=== PATIENT | male | born 1965 | race Caucasian/White ===

== ENCOUNTER 2023-10-02 07:35 | Outpatient (CLI) | payer BC ==
[2023-10-02] MEDS ORDERED: Iopamidol 370 76% 100 ML VIAL ONE (14:13)
== END 2023-10-02 07:36 | disposition home or self-care (01) ==
LOC: BICCT 07:35
PROVIDERS: ATTEND Specialist
DX: K43.5 Parastomal hernia without obstruction or gangrene (principal); M47.816 Spondylosis without myelopathy or radiculopathy, lumbar region; Z90.49 Acquired absence of other specified parts of digestive tract; Z93.3 Colostomy status
CPT/HCPCS: 74177; Q9967

== ENCOUNTER 2023-10-05 12:52 | Outpatient (CLI) | payer BC ==
[2023-10-05 14:15] LABS: #Basophils 0.1 10x3/uL (0.0-0.2); #Eosinphils 0.4 10x3/uL (0.0-0.5); #Monocytes 0.6 10x3/uL (0.0-1.1); %Basophils 1.2 % (0.0-2.0); %Lymphocytes 30.3 % (18.0-47.0); %Monocytes 8.3 % (0.0-10.0); %Neutrophils 54.9 % (40.0-75.0); Hematocrit 44.2 % (38.8-50.0); Hemoglobin 15.3 g/dL (13.5-17.5); Mean Corpuscular HGB CONC 34.6 g/dL (32.0-36.0); Mean Corpuscular Hemoglobin 30.9 pg (27.0-33.0); Mean Corpuscular Volume 89.3 fl (81.2-95.1); Mean Platelet Volume 9.6 fl (7.4-10.4); Platelet Count 251 10x3/uL (150-450); RBC Distribution Width 12.9 % (11.5-14.5); Red Blood Cell (RBC) Count 4.95 10x6/uL (4.32-5.72); White Blood Cell (WBC) Count 7.3 10x3/uL (3.5-10.5)
[2023-10-05 14:31] LABS: Anion Gap 14 mmol/L (10-20); BUN (Urea Nitrogen) 15 mg/dL (8.4-25.7); Calc. Creatinine Clearance 0 mL/min (70-130); Calcium 9.1 mg/dL (7.8-10.44); Carbon Dioxide 25 mmol/L (22-29); Chloride 105 mmol/L (98-107); Estimated GFR 101; Glucose 99 mg/dL (70-105); Potassium 4.2 mmol/L (3.5-5.1); Sodium 140 mmol/L (136-145)
[2023-10-05 21:59] LABS: Hemoglobin A1c 5.8 % (4.0-6.0)
== END 2023-10-05 12:53 | disposition home or self-care (01) ==
LOC: LABBT 12:52
PROVIDERS: ATTEND Specialist
DX: Z01.818 Encounter for other preprocedural examination (principal); K43.5 Parastomal hernia without obstruction or gangrene; Z90.49 Acquired absence of other specified parts of digestive tract
CPT/HCPCS: 71046; 80048; 83036; 85025; 93005; 93010

== ENCOUNTER 2023-10-05 13:00 | Inpatient (IN) | payer BC ==
[2023-10-05 13:36] VITALS: BMI 27.8
[2023-10-10] MEDS ORDERED: Ketorolac Tromethamine 30 MG/ML VIAL ONE (07:40)
[2023-10-10] MEDS ORDERED: cefOXitin 2 GM VIAL ONE ×2 (07:41→11:01)
[2023-10-10] MEDS ORDERED: Acetaminophen 500 MG TAB ONE (07:41)
[2023-10-10] MEDS ORDERED: Sodium Chloride 0.9% 100 ML ONE (07:41)
[2023-10-10] MEDS ORDERED: fentaNYL 50 mcg/mL 1 mL Vial ONE (07:50)
[2023-10-10] MEDS ORDERED: Midazolam HCl 2 mg/2 ml Vial ONE ×2 (07:50→08:00)
[2023-10-10] MEDS ORDERED: Bupivacaine 0.25% HCL 30 ML VIAL ONE (07:51)
[2023-10-10] MEDS ORDERED: Rocuronium Bromide 10 MG/ML (10ML VIAL) ONE ×2 (08:00→09:25)
[2023-10-10] MEDS ORDERED: Lidocaine 2% PF 5 ML VIAL ONE (08:00)
[2023-10-10] MEDS ORDERED: fentaNYL PF 100 MCG/2 ML SYRINGE ONE ×2 (08:00→09:58)
[2023-10-10] MEDS ORDERED: PROPOFOL 20 ML ONE (08:00)
[2023-10-10] MEDS ORDERED: Ondansetron HCl/PF 4 MG/2 ML Vial IVP PRN (08:15)
[2023-10-10] MEDS ORDERED: Promethazine HCl 25 MG/ML VIAL IM PRN ×5 (08:15→14:24)
[2023-10-10] MEDS ORDERED: HYDROmorphone 2 MG/ML VIAL SLOW IVP PRN (08:15)
[2023-10-10] MEDS ORDERED: Lidocaine 1% (PF) 30 ML VIAL ONE (08:47)
[2023-10-10] MEDS ORDERED: EPINEPHrine 1 MG/ML VIAL ONE (08:47)
[2023-10-10] MEDS ORDERED: PHENYLEPHRINE-NS 100 MCG/ML 10 ML SYRINGE ONE (09:25)
[2023-10-10] MEDS ORDERED: ePHEDrine Sulfate 50 MG/10 ML VIAL ONE ×4 (09:25→13:48)
[2023-10-10] MEDS ORDERED: PROPOFOL 200 MG/20 ML VIAL ONE (09:25)
[2023-10-10] MEDS ORDERED: Ondansetron PF 4 MG/2 ML Vial ONE ×2 (09:25→12:57)
[2023-10-10] MEDS ORDERED: Lidocaine 1% PF 5 ML VIAL ONE (09:25)
[2023-10-10] MEDS ORDERED: Ketamine In 0.9 % NaCl 50 MG/5 ML SYRINGE ONE (10:27)
[2023-10-10] MEDS ORDERED: ceFOXitin 1 GM VIAL ONE (11:01)
[2023-10-10] MEDS ORDERED: diphenhydrAMINE 50 MG/ML VIAL IM PRN ×3 (14:06→14:24)
[2023-10-10] MEDS ORDERED: diphenhydrAMINE 25 MG CAP PO PRN ×3 (14:06→14:24)
[2023-10-10] MEDS ORDERED: Naloxone HCl 0.4 mg/ml Vial IV PRN ×3 (14:06→14:24)
[2023-10-10] MEDS ORDERED: diphenhydrAMINE 50 MG/ML VIAL IVP PRN ×3 (14:06→14:24)
[2023-10-10] MEDS ORDERED: FENTANYL 500 MCG/10 ML VIAL 2,000 MCG in Sodium Chloride 0.9% 60 ML IV PRN ×2 (14:06→14:19)
[2023-10-10] MEDS ORDERED: Ondansetron PF 4 MG/2 ML Vial IVP PRN ×3 (14:06→14:19)
[2023-10-10] MEDS ORDERED: Communication Order-Pharmacy FS SCH ×3 (14:15→14:30)
[2023-10-10] MEDS ORDERED: Fioricet 325/50/40 mg Tablet PO PRN (14:15)
[2023-10-10] MEDS ORDERED: hydrALAZINE 20 MG/ML VIAL SLOW IVP PRN (14:15)
[2023-10-10] MEDS ORDERED: Ipratropium/Albuterol 3 ML NEB NEB PRN (14:15)
[2023-10-10] MEDS: Ketorolac Tromethamine 30 MG/ML VIAL IVP SCH (18:42)
[2023-10-10] MEDS: Ondansetron PF 4 MG/2 ML Vial IVP PRN (18:47)
[2023-10-11] MEDS: Ketorolac Tromethamine 30 MG/ML VIAL IVP SCH ×3 (00:36→11:55)
[2023-10-11] MEDS: cefOXitin 2 GM in Sodium Chloride 0.9% 100 ML IVPB SCH ×2 (00:37→05:50)
[2023-10-11] MEDS: Famotidine/PF 20 mg/2ml Vial SLOW IVP SCH ×3 (00:37→20:07)
[2023-10-11] MEDS: Sodium Chloride 0.9% 1,000 ML IV SCH ×4 (00:41→17:30)
[2023-10-11] MEDS: Ondansetron PF 4 MG/2 ML Vial IVP PRN ×4 (01:01→20:07)
[2023-10-11] MEDS: Famotidine 20 MG TAB PO SCH ×3 (02:33→20:07)
[2023-10-11 05:26] LABS: #Eosinphils 0.1 thou/uL (0.0-0.7); #Monocytes 0.9 thou/uL (0.11-0.59); #Neutrophils 9.5 thou/uL (1.40-6.50); %Basophils 0.2 % (0.0-1.0); %Eosinophils 0.5 % (0.0-10.0); %Lymphocytes 12.6 % (21.0-51.0); %Monocytes 7.1 % (0.0-10.0); %Neutrophils 79.3 % (42.0-75.0); Hematocrit 35.5 % (42.0-52.0); Hemoglobin 12.1 g/dL (14.0-18.0); Mean Corpuscular HGB CONC 34.1 g/dL (32.0-36.0); Mean Corpuscular Hemoglobin 31.2 pg (27.0-31.0); Mean Corpuscular Volume 91.5 fl (78.0-98.0); Mean Platelet Volume 9.7 fL (7.4-10.4); Platelet Count 198 10x3/uL (130-400); RBC Distribution Width 13.2 % (11.5-14.5); Red Blood Cell (RBC) Count 3.88 mill/uL (4.70-6.10)
[2023-10-11 08:29] LABS: Anion Gap 10 mmol/L (10-20); BUN (Urea Nitrogen) 11 mg/dL (8.4-25.7); Calc. Creatinine Clearance 137 mL/min (70-130); Calcium 7.7 mg/dL (7.8-10.44); Carbon Dioxide 21 mmol/L (22-29); Chloride 108 mmol/L (98-107); Estimated GFR 104; Glucose 142 mg/dL (70-105); Potassium 4.2 mmol/L (3.5-5.1); Sodium 135 mmol/L (136-145)
[2023-10-11] MEDS: Tamsulosin HCl 0.4 MG CAP PO SCH (09:45)
[2023-10-11] MEDS ORDERED: Acetaminophen 325 MG TAB PO PRN (18:28)
[2023-10-12] MEDS: FENTANYL 500 MCG/10 ML VIAL 2,000 MCG in Sodium Chloride 0.9% 60 ML IV PRN ×2 (00:48→20:40)
[2023-10-12] MEDS: Sodium Chloride 0.9% 1,000 ML IV SCH ×3 (01:33→19:30)
[2023-10-12] MEDS: Ondansetron PF 4 MG/2 ML Vial IVP PRN ×3 (01:33→20:48)
[2023-10-12] MEDS: Tamsulosin HCl 0.4 MG CAP PO SCH (09:52)
[2023-10-12] MEDS: Famotidine 20 MG TAB PO SCH ×2 (09:52→20:42)
[2023-10-12] MEDS: Famotidine/PF 20 mg/2ml Vial SLOW IVP SCH ×2 (09:53→20:42)
[2023-10-12] MEDS: Fioricet 325/50/40 mg Tablet PO PRN (11:24)
[2023-10-13] MEDS: Sodium Chloride 0.9% 1,000 ML IV SCH ×3 (02:00→20:21)
[2023-10-13 06:30] LABS: #Basophils 0.1 thou/uL (0.0-0.2); #Eosinphils 0.3 thou/uL (0.0-0.7); #Monocytes 0.9 thou/uL (0.11-0.59); #Neutrophils 6.2 thou/uL (1.40-6.50); %Basophils 0.6 % (0.0-1.0); %Eosinophils 3.1 % (0.0-10.0); %Lymphocytes 18.1 % (21.0-51.0); %Monocytes 9.9 % (0.0-10.0); %Neutrophils 68.1 % (42.0-75.0); Hematocrit 35.9 % (42.0-52.0); Hemoglobin 12.1 g/dL (14.0-18.0); Mean Corpuscular HGB CONC 33.7 g/dL (32.0-36.0); Mean Corpuscular Hemoglobin 30.7 pg (27.0-31.0); Mean Corpuscular Volume 91.1 fl (78.0-98.0); Mean Platelet Volume 9.9 fL (7.4-10.4); Platelet Count 214 10x3/uL (130-400); RBC Distribution Width 13.2 % (11.5-14.5); Red Blood Cell (RBC) Count 3.94 mill/uL (4.70-6.10); White Blood Cell (WBC) Count 9.1 10x3/uL (4.8-10.8)
[2023-10-13 07:00] LABS: Anion Gap 10 mmol/L (10-20); BUN (Urea Nitrogen) 4 mg/dL (8.4-25.7); Calc. Creatinine Clearance 151 mL/min (70-130); Calcium 8.4 mg/dL (7.8-10.44); Carbon Dioxide 25 mmol/L (22-29); Chloride 105 mmol/L (98-107); Estimated GFR 107; Glucose 95 mg/dL (70-105); Potassium 3.4 mmol/L (3.5-5.1); Sodium 137 mmol/L (136-145)
[2023-10-13] MEDS: Tamsulosin HCl 0.4 MG CAP PO SCH (08:15)
[2023-10-13] MEDS: Famotidine 20 MG TAB PO SCH ×2 (08:16→20:42)
[2023-10-13] MEDS: Famotidine/PF 20 mg/2ml Vial SLOW IVP SCH ×2 (08:16→20:30)
[2023-10-13] MEDS: Ondansetron PF 4 MG/2 ML Vial IVP PRN (08:16)
[2023-10-13] MEDS: Fioricet 325/50/40 mg Tablet PO PRN (08:29)
[2023-10-13] MEDS ORDERED: FLU VACC QS2023-24(6MOS UP)/PF 60 MCG/0.5 ML SYRINGE IM ONE (09:00)
[2023-10-13] MEDS ORDERED: FENTANYL 500 MCG/10 ML VIAL 2,000 MCG in Sodium Chloride 0.9% 60 ML IV PRN (11:31)
[2023-10-14] MEDS ORDERED: Morphine 4 MG/ML VIAL SLOW IVP PRN (05:22)
[2023-10-14] MEDS ORDERED: traMADol HCl 50 MG TAB PO PRN (05:22)
[2023-10-14] MEDS: Sodium Chloride 0.9% 1,000 ML IV SCH (07:14)
[2023-10-14] MEDS: traMADol HCl 50 MG TAB PO PRN ×2 (08:06→13:36)
[2023-10-14] MEDS: Tamsulosin HCl 0.4 MG CAP PO SCH (08:06)
[2023-10-14] MEDS: Famotidine 20 MG TAB PO SCH ×2 (08:06→20:25)
[2023-10-14] MEDS: Famotidine/PF 20 mg/2ml Vial SLOW IVP SCH ×2 (08:06→20:26)
[2023-10-14] MEDS: Ondansetron PF 4 MG/2 ML Vial IVP PRN (09:45)
[2023-10-14] MEDS ORDERED: HYDROcodone/Acetaminophen 7.5/325 mg Tablet PO PRN (14:56)
[2023-10-14] MEDS: Fioricet 325/50/40 mg Tablet PO PRN (15:15)
[2023-10-14] MEDS: HYDROcodone/Acetaminophen 7.5/325 mg Tablet PO PRN (21:07)
[2023-10-15] MEDS: HYDROcodone/Acetaminophen 7.5/325 mg Tablet PO PRN ×2 (05:24→11:13)
[2023-10-15 08:29] VITALS: BP 127/75; TEMP 97.4
[2023-10-15] MEDS: Famotidine 20 MG TAB PO SCH (09:24)
[2023-10-15] MEDS: Tamsulosin HCl 0.4 MG CAP PO SCH (09:24)
[2023-10-15] MEDS: Famotidine/PF 20 mg/2ml Vial SLOW IVP SCH (09:25)
[2023-10-15] MEDS ORDERED: FLU VACC QS2023-24(6MOS UP)/PF 60 MCG/0.5 ML SYRINGE IM ONE (10:22)
== END 2023-10-15 11:40 | disposition home or self-care (01) | DRG 330 ==
LOC: SURG A 10-10 07:01 → SURG B 10-10 15:50
PROVIDERS: ADMIT Specialist; ATTEND Specialist
PROC: 0DBN0ZZ Excision of Sigmoid Colon, Open Approach (ICD-10-PCS; principal; 2023-10-10)
PROC: 0WQF0ZZ Repair Abdominal Wall, Open Approach (ICD-10-PCS; 2023-10-10)
PROC: 0D1B0Z4 Bypass Ileum to Cutaneous, Open Approach (ICD-10-PCS; 2023-10-10)
PROC: 0DBP0ZZ Excision of Rectum, Open Approach (ICD-10-PCS; 2023-10-10)
DX: Z43.3 Encounter for attention to colostomy (principal); K56.7 Ileus, unspecified; K43.5 Parastomal hernia without obstruction or gangrene; K62.4 Stenosis of anus and rectum; Z90.49 Acquired absence of other specified parts of digestive tract; Z98.890 Other specified postprocedural states
CPT/HCPCS: 36415; 36416; 80048; 85025; 88307; 90471; 90686; 97139; A4314; A4649; C1713; G0008; J0171; J0694; J1650; J1885; J2001; J2250; J2270; J2405; J2704; J3010; J3490; J7050; S0020; S0028

== ENCOUNTER 2023-11-24 07:59 | Outpatient (CLI) | payer BC ==
[2023-11-24] MEDS ORDERED: MD-Gastroview 120 ML BOT ONE (08:24)
== END 2023-11-24 08:00 | disposition home or self-care (01) ==
LOC: RAD 07:59
PROVIDERS: ATTEND Specialist
DX: Z09 Encounter for follow-up examination after completed treatment for conditions other than malignant neoplasm (principal); K63.89 Other specified diseases of intestine; Z98.890 Other specified postprocedural states
CPT/HCPCS: 74280; Q9963

== ENCOUNTER 2023-11-30 07:18 | Inpatient (IN) | payer BC ==
[2023-11-29 13:41] VITALS: BMI 25.7
[2023-11-30] MEDS ORDERED: Acetaminophen 500 MG TAB ONE (08:26)
[2023-11-30] MEDS ORDERED: Ketorolac Tromethamine 30 MG (1 mL) VIAL ONE (08:26)
[2023-11-30] MEDS ORDERED: EPINEPHrine 1 MG/ML VIAL ONE (08:37)
[2023-11-30] MEDS ORDERED: Lidocaine 1% (PF) 30 ML VIAL ONE (08:37)
[2023-11-30] MEDS ORDERED: Bupivacaine 0.25% HCL 30 ML VIAL ONE (08:37)
[2023-11-30] MEDS ORDERED: PROPOFOL 20 ML ONE (08:38)
[2023-11-30] MEDS ORDERED: fentaNYL PF 100 MCG/2 ML SYRINGE ONE (08:38)
[2023-11-30] MEDS ORDERED: Rocuronium Bromide 10 MG/ML (10ML VIAL) ONE (08:39)
[2023-11-30] MEDS ORDERED: Ondansetron PF 4 MG/2 ML Vial ONE (08:39)
[2023-11-30] MEDS ORDERED: Lidocaine 1% PF 5 ML VIAL ONE (08:39)
[2023-11-30 08:46] LABS: #Basophils 0.1 thou/uL (0.0-0.2); #Eosinphils 0.4 thou/uL (0.0-0.7); #Monocytes 0.8 thou/uL (0.11-0.59); #Neutrophils 6.1 thou/uL (1.40-6.50); %Basophils 1.1 % (0.0-1.0); %Lymphocytes 26.8 % (21.0-51.0); %Monocytes 7.9 % (0.0-10.0); %Neutrophils 59.7 % (42.0-75.0); Hematocrit 41.2 % (42.0-52.0); Mean Corpuscular Hemoglobin 30.3 pg (27.0-31.0); Mean Corpuscular Volume 89.2 fl (78.0-98.0); Platelet Count 305 10x3/uL (130-400); RBC Distribution Width 13.5 % (11.5-14.5); Red Blood Cell (RBC) Count 4.62 mill/uL (4.70-6.10); White Blood Cell (WBC) Count 10.2 10x3/uL (4.8-10.8)
[2023-11-30 08:57] LABS: Hemoglobin A1c 5.4 % (4.0-6.0)
[2023-11-30] MEDS ORDERED: Sodium Chloride 0.9% 100 ML ONE (09:09)
[2023-11-30] MEDS ORDERED: cefOXitin 2 GM VIAL ONE (09:09)
[2023-11-30 09:11] LABS: Anion Gap 12 mmol/L (10-20); BUN (Urea Nitrogen) 13 mg/dL (8.4-25.7); Calc. Creatinine Clearance 118 mL/min (70-130); Calcium 9.1 mg/dL (7.8-10.44); Carbon Dioxide 23 mmol/L (22-29); Chloride 106 mmol/L (98-107); Estimated GFR 102; Glucose 86 mg/dL (70-105); Potassium 4.4 mmol/L (3.5-5.1); Sodium 137 mmol/L (136-145)
[2023-11-30] MEDS ORDERED: ePHEDrine Sulfate 50 MG/10 ML VIAL ONE (09:53)
[2023-11-30] MEDS ORDERED: SUGAMMADEX SODIUM 200 MG/2 ML VIAL ONE (10:31)
[2023-11-30] MEDS ORDERED: Ondansetron HCl/PF 4 MG/2 ML Vial IVP PRN (10:59)
[2023-11-30] MEDS ORDERED: Promethazine HCl 25 MG/ML VIAL IM PRN ×2 (10:59→11:48)
[2023-11-30] MEDS ORDERED: Morphine 2 MG/ML VIAL SLOW IVP PRN (11:48)
[2023-11-30] MEDS ORDERED: hydrALAZINE 20 MG/ML VIAL SLOW IVP PRN (11:48)
[2023-11-30] MEDS ORDERED: Ipratropium/Albuterol 3 ML NEB NEB PRN (11:48)
[2023-11-30] MEDS ORDERED: Bupivacaine PF 0.5% 30 ML VIAL ONE (12:22)
[2023-11-30] MEDS: Morphine 4 MG/ML VIAL SLOW IVP PRN (13:45)
[2023-11-30] MEDS: D5 1/2 NS w/20 mEq KCL 1,000 ML IV SCH (13:45)
[2023-11-30] MEDS: Ketorolac Tromethamine 30 MG (1 mL) VIAL IVP SCH (15:08)
[2023-11-30] MEDS: Ondansetron PF 4 MG/2 ML Vial IVP PRN (17:41)
[2023-11-30] MEDS: Famotidine 20 MG TAB PO SCH (19:55)
[2023-11-30] MEDS: Famotidine/PF 20 mg/2ml Vial SLOW IVP SCH (19:58)
[2023-12-01 04:52] LABS: #Basophils 0.1 thou/uL (0.0-0.2); #Eosinphils 0.2 thou/uL (0.0-0.7); %Basophils 0.6 % (0.0-1.0); %Eosinophils 1.9 % (0.0-10.0); %Lymphocytes 18.5 % (21.0-51.0); %Monocytes 9.6 % (0.0-10.0); Hematocrit 33.1 % (42.0-52.0); Hemoglobin 11.1 g/dL (14.0-18.0); Mean Corpuscular HGB CONC 33.5 g/dL (32.0-36.0); Mean Corpuscular Hemoglobin 30.7 pg (27.0-31.0); Mean Corpuscular Volume 91.7 fl (78.0-98.0); Mean Platelet Volume 8.9 fL (7.4-10.4); Platelet Count 211 10x3/uL (130-400); RBC Distribution Width 13.6 % (11.5-14.5); Red Blood Cell (RBC) Count 3.61 mill/uL (4.70-6.10); White Blood Cell (WBC) Count 10.1 10x3/uL (4.8-10.8)
[2023-12-01 05:16] LABS: Anion Gap 10 mmol/L (10-20); BUN (Urea Nitrogen) 9 mg/dL (8.4-25.7); Calc. Creatinine Clearance 132 mL/min (70-130); Calcium 7.8 mg/dL (7.8-10.44); Carbon Dioxide 25 mmol/L (22-29); Chloride 102 mmol/L (98-107); Estimated GFR 105; Glucose 125 mg/dL (70-105); Potassium 4.1 mmol/L (3.5-5.1); Sodium 133 mmol/L (136-145)
[2023-12-01] MEDS: Enoxaparin 40 MG (0.4 mL) SYRINGE SC SCH (08:33)
[2023-12-01] MEDS: Tamsulosin HCl 0.4 MG CAP PO SCH (08:33)
[2023-12-01] MEDS: D5 1/2 NS w/20 mEq KCL 1,000 ML IV SCH (10:06)
[2023-12-01] MEDS ORDERED: HYDROcodone/Acetaminophen 7.5/325 mg Tablet PO PRN (10:59)
[2023-12-02] MEDS: HYDROcodone/Acetaminophen 7.5/325 mg Tablet PO PRN (08:32)
[2023-12-02 12:46] VITALS: BP 109/66; TEMP 98.3
== END 2023-12-02 16:00 | disposition home or self-care (01) | DRG 331 ==
LOC: SDC 07:18 → SURG B 11:07
PROVIDERS: ADMIT Specialist; ATTEND Specialist
PROC: 0DBB0ZZ Excision of Ileum, Open Approach (ICD-10-PCS; principal; 2023-11-30)
DX: Z43.2 Encounter for attention to ileostomy (principal); Z90.49 Acquired absence of other specified parts of digestive tract; Z98.890 Other specified postprocedural states
CPT/HCPCS: 36415; 80048; 83036; 85025; 88304; A4314; A4649; J0171; J0665; J0694; J1650; J1885; J2001; J2270; J2405; J2704; J3480; J3490; S0028

== ENCOUNTER 2023-12-03 13:35 | Observation (INO) | payer BC ==
[~2023-12-03 13:35] MED LIST: Iopamidol-370 76% 500 ML MDV (1 ML CHARGE) ONE
[2023-12-03] MEDS ORDERED: Ketorolac Tromethamine 30 MG (1 mL) VIAL ONE (14:21)
[2023-12-03] MEDS ORDERED: Ondansetron PF 4 MG/2 ML Vial ONE (14:22)
[2023-12-03 14:23] LABS: #Basophils 0.1 thou/uL (0.0-0.2); #Eosinphils 0.2 thou/uL (0.0-0.7); #Monocytes 0.9 thou/uL (0.11-0.59); #Neutrophils 4.9 thou/uL (1.40-6.50); %Basophils 0.6 % (0.0-1.0); %Eosinophils 2.3 % (0.0-10.0); %Lymphocytes 24.1 % (21.0-51.0); %Monocytes 10.9 % (0.0-10.0); %Neutrophils 61.8 % (42.0-75.0); Hematocrit 33.8 % (42.0-52.0); Hemoglobin 11.6 g/dL (14.0-18.0); Mean Corpuscular HGB CONC 34.3 g/dL (32.0-36.0); Mean Corpuscular Hemoglobin 30.8 pg (27.0-31.0); Mean Corpuscular Volume 89.7 fl (78.0-98.0); Platelet Count 238 10x3/uL (130-400); RBC Distribution Width 13.4 % (11.5-14.5); Red Blood Cell (RBC) Count 3.77 mill/uL (4.70-6.10); White Blood Cell (WBC) Count 7.9 10x3/uL (4.8-10.8)
[2023-12-03] MEDS ORDERED: Morphine 4 MG/ML VIAL ONE (14:36)
[2023-12-03 14:45] LABS: ALT (SGPT) 67 U/L (8-55); AST (SGOT) 41 U/L (5-34); Albumin 3.8 g/dL (3.5-5.0); Alkaline Phosphatase 172 U/L (40-110); Anion Gap 12 mmol/L (10-20); BUN (Urea Nitrogen) 8 mg/dL (8.4-25.7); Bilirubin, Total 0.5 mg/dL (0.2-1.2); Calc. Creatinine Clearance 0 mL/min (70-130); Calcium 9.1 mg/dL (7.8-10.44); Carbon Dioxide 25 mmol/L (22-29); Chloride 101 mmol/L (98-107); Estimated GFR 104; Glucose 100 mg/dL (70-105); Lipase Less than 4 U/L (8-78); Potassium 3.7 mmol/L (3.5-5.1); Protein, Total 6.8 g/dL (6.0-8.3); Sodium 134 mmol/L (136-145)
[2023-12-03 16:06] LABS: Bacteria/HPF None Seen HPF (None Seen); Bilirubin Negative (Negative); Blood, Urine Negative (Negative); CAUTI Indications for Culture Pelvic or flank pain; Clarity Clear (Clear); Glucose, Urine (Dipstick) Normal (Negative); Ketone, Urine Negative (Negative); Leukocyte Negative Leu/uL (Negative); Nitrite Negative (Negative); Protein, Urine (Dipstick) Negative (Neg-Trace); RBC/HPF None Seen HPF (0-3); Specific Gravity, Urine 1.017 (1.002-1.036); Squamous Epithelial None Seen HPF (0-3); Urobilinogen Normal mg/dL (Less than 2); WBC/HPF None Seen HPF (0-3)
[2023-12-03 16:10] LABS: Urine Culture Reflex No No
[2023-12-03] MEDS ORDERED: Ondansetron ODT 4 MG TAB SL PRN (19:15)
[2023-12-03] MEDS ORDERED: Ondansetron PF 4 MG/2 ML Vial IVP PRN (19:15)
[2023-12-03] MEDS: HYDROcodone/Acetaminophen 5/325 mg Tablet PO PRN (20:33)
[2023-12-03] MEDS: Loperamide HCl 2 MG CAP PO PRN (20:33)
[2023-12-03] MEDS: Sodium Chloride 0.9% 1,000 ML IV SCH (20:34)
[2023-12-04 01:52] VITALS: BMI 40.6
[2023-12-04 02:28] LABS: Campy jejuni + coli by PCR Negative (Negative); STEC Shiga Toxin 1+2 Negative (Negative); Salmonella spp. by PCR Negative (Negative); Shigella spp + EIEC by PCR Negative (Negative)
[2023-12-04] MEDS: Loperamide HCl 2 MG CAP PO SCH (09:40)
[2023-12-04] MEDS: HYDROcodone/Acetaminophen 7.5/325 mg Tablet PO PRN (09:40)
[2023-12-04] MEDS: D5 0.9% NS w/ 20 mEq KCl 1,000 ML IV SCH (09:40)
[2023-12-04] MEDS ORDERED: Fioricet 325/50/40 mg Tablet PO PRN (10:07)
[2023-12-04 13:48] VITALS: BP 120/70; TEMP 97.9
[2023-12-05] MEDS ORDERED: Tamsulosin HCl 0.4 MG CAP PO SCH (09:00)
== END 2023-12-04 16:19 | disposition home or self-care (01) ==
LOC: ERS 13:35 → ERHOLD 16:45 → SURG A 18:52
PROVIDERS: ADMIT Specialist; ATTEND Specialist
DX: R19.7 Diarrhea, unspecified (principal)
CPT/HCPCS: 36415; 74177; 80053; 81001; 83690; 85025; 87324; 87449; 87505; 96374; 96375; G0378; J1885; J2270; J2405; J3480; J7050; Q9967

== ENCOUNTER 2023-12-06 16:15 | Inpatient (IN) | payer BC ==
[2023-12-06 17:56] LABS: #Eosinphils 0.2 thou/uL (0.0-0.7); #Monocytes 0.9 thou/uL (0.11-0.59); #Neutrophils 2.4 thou/uL (1.40-6.50); %Basophils 0.7 % (0.0-1.0); %Eosinophils 3.2 % (0.0-10.0); %Lymphocytes 35.3 % (21.0-51.0); %Monocytes 16.7 % (0.0-10.0); %Neutrophils 43.7 % (42.0-75.0); Hematocrit 33.8 % (42.0-52.0); Hemoglobin 11.3 g/dL (14.0-18.0); Mean Corpuscular HGB CONC 33.4 g/dL (32.0-36.0); Mean Corpuscular Hemoglobin 30.5 pg (27.0-31.0); Mean Corpuscular Volume 91.4 fl (78.0-98.0); Mean Platelet Volume 8.9 fL (7.4-10.4); Platelet Count 256 10x3/uL (130-400); RBC Distribution Width 13.3 % (11.5-14.5); White Blood Cell (WBC) Count 5.4 10x3/uL (4.8-10.8)
[2023-12-06 18:22] LABS: ALT (SGPT) 110 U/L (8-55); AST (SGOT) 46 U/L (5-34); Albumin 3.6 g/dL (3.5-5.0); Alkaline Phosphatase 260 U/L (40-110); Anion Gap 12 mmol/L (10-20); BUN (Urea Nitrogen) 11 mg/dL (8.4-25.7); Bilirubin, Total 0.4 mg/dL (0.2-1.2); Calc. Creatinine Clearance 0 mL/min (70-130); Calcium 8.2 mg/dL (7.8-10.44); Carbon Dioxide 23 mmol/L (22-29); Chloride 107 mmol/L (98-107); Estimated GFR 103; Globulin 2.8 g/dL (2.4-3.5); Glucose 101 mg/dL (70-105); Lipase 5 U/L (8-78); Magnesium 1.7 mg/dL (1.6-2.6); Potassium 3.6 mmol/L (3.5-5.1); Protein, Total 6.4 g/dL (6.0-8.3); Sodium 138 mmol/L (136-145)
[2023-12-06] MEDS ORDERED: Ondansetron ODT 4 MG TAB SL PRN (20:45)
[2023-12-06] MEDS ORDERED: Ondansetron PF 4 MG/2 ML Vial IVP PRN (20:45)
[2023-12-06 21:49] VITALS: BMI 25.7
[2023-12-06] MEDS: Sodium Chloride 0.9% 1,000 ML IV SCH (23:54)
[2023-12-07] MEDS ORDERED: Acetaminophen 325 MG TAB ONE (02:04)
[2023-12-07] MEDS: Acetaminophen 325 MG TAB PO PRN (02:06)
[2023-12-07] MEDS ORDERED: Glucagon 1 MG/ML KIT IM PRN (08:37)
[2023-12-07] MEDS ORDERED: Loperamide HCl 2 MG CAP PO PRN (08:37)
[2023-12-07] MEDS ORDERED: Ondansetron ODT 4 MG TAB PO PRN (08:37)
[2023-12-07] MEDS ORDERED: Dextrose 5% in Water 1,000 ML IV PRN (08:37)
[2023-12-07] MEDS ORDERED: Ondansetron PF 4 MG/2 ML Vial IVP PRN (08:37)
[2023-12-07] MEDS ORDERED: Dextrose 50% Abboject 50 ML SYRINGE SLOW IVP PRN (08:37)
[2023-12-07] MEDS ORDERED: D5 1/2 NS w/20 mEq KCL 1,000 ML ONE (09:34)
[2023-12-07] MEDS ORDERED: TETANUS, DIPHTHERIA TOX,ADULT (TDVAX) 0.5 ML VIAL IM ONE (09:35)
[2023-12-07] MEDS ORDERED: Famotidine/PF 20 mg/2ml Vial ONE (09:35)
[2023-12-07] MEDS: Cholestyramine/Aspartame 4 gm Packet PO SCH (09:57)
[2023-12-07] MEDS: TETANUS, DIPHTHERIA TOX,ADULT (TDVAX) 0.5 ML VIAL IM ONE (09:57)
[2023-12-07] MEDS: Famotidine 20 MG TAB PO SCH (09:58)
[2023-12-07] MEDS: D5 1/2 NS w/20 mEq KCL 1,000 ML IV SCH (09:59)
[2023-12-08 05:35] LABS: #Basophils 0.1 thou/uL (0.0-0.2); #Eosinphils 0.2 thou/uL (0.0-0.7); #Neutrophils 3.1 thou/uL (1.40-6.50); %Basophils 0.9 % (0.0-1.0); %Eosinophils 2.7 % (0.0-10.0); %Lymphocytes 34.7 % (21.0-51.0); %Monocytes 15.3 % (0.0-10.0); Hematocrit 36.8 % (42.0-52.0); Hemoglobin 12.8 g/dL (14.0-18.0); Mean Corpuscular HGB CONC 34.8 g/dL (32.0-36.0); Mean Corpuscular Hemoglobin 31.1 pg (27.0-31.0); Mean Corpuscular Volume 89.5 fl (78.0-98.0); Mean Platelet Volume 8.8 fL (7.4-10.4); Platelet Count 329 10x3/uL (130-400); RBC Distribution Width 13.2 % (11.5-14.5); Red Blood Cell (RBC) Count 4.11 mill/uL (4.70-6.10); White Blood Cell (WBC) Count 6.7 10x3/uL (4.8-10.8)
[2023-12-08 06:05] LABS: Anion Gap 11 mmol/L (10-20); BUN (Urea Nitrogen) 7 mg/dL (8.4-25.7); Calc. Creatinine Clearance 121 mL/min (70-130); Calcium 9.2 mg/dL (7.8-10.44); Carbon Dioxide 27 mmol/L (22-29); Chloride 105 mmol/L (98-107); Estimated GFR 102; Glucose 84 mg/dL (70-105); Potassium 3.6 mmol/L (3.5-5.1); Sodium 139 mmol/L (136-145)
[2023-12-08] MEDS: Loperamide HCl 2 MG CAP PO SCH (08:44)
[2023-12-08] MEDS: Tamsulosin HCl 0.4 MG CAP PO SCH (09:42)
[2023-12-08] MEDS: HYDROcodone/Acetaminophen 7.5/325 mg Tablet PO PRN (09:43)
[2023-12-08] MEDS: D5 1/2 NS w/20 mEq KCL 1,000 ML IV SCH (09:43)
[2023-12-08] MEDS: Vancomycin HCl 125 MG Capsule PO SCH (11:09)
[2023-12-08 14:33] LABS: Campy jejuni + coli by PCR Negative (Negative); STEC Shiga Toxin 1+2 Negative (Negative); Salmonella spp. by PCR Negative (Negative); Shigella spp + EIEC by PCR Negative (Negative)
[2023-12-08] MEDS: Fioricet 325/50/40 mg Tablet PO PRN (18:08)
[2023-12-10] MEDS: HYDROcodone/Acetaminophen 7.5/325 mg Tablet PO PRN (08:05)
[2023-12-10] MEDS: Diphenoxylate HCl/Atropine Tablet PO PRN (21:15)
[2023-12-10] MEDS: Melatonin 3 MG TAB PO PRN (23:22)
[2023-12-11 04:46] LABS: #Basophils 0.1 thou/uL (0.0-0.2); #Eosinphils 0.2 thou/uL (0.0-0.7); #Monocytes 1.4 thou/uL (0.11-0.59); #Neutrophils 3.9 thou/uL (1.40-6.50); %Basophils 0.7 % (0.0-1.0); %Eosinophils 1.9 % (0.0-10.0); %Lymphocytes 31.4 % (21.0-51.0); %Monocytes 16.9 % (0.0-10.0); %Neutrophils 48.5 % (42.0-75.0); Hematocrit 34.8 % (42.0-52.0); Hemoglobin 11.8 g/dL (14.0-18.0); Mean Corpuscular HGB CONC 33.9 g/dL (32.0-36.0); Mean Corpuscular Hemoglobin 30.2 pg (27.0-31.0); Mean Platelet Volume 8.9 fL (7.4-10.4); Platelet Count 302 10x3/uL (130-400); Red Blood Cell (RBC) Count 3.91 mill/uL (4.70-6.10); White Blood Cell (WBC) Count 8.1 10x3/uL (4.8-10.8)
[2023-12-11 05:10] LABS: ALT (SGPT) 46 U/L (8-55); AST (SGOT) 20 U/L (5-34); Albumin 3.6 g/dL (3.5-5.0); Alkaline Phosphatase 213 U/L (40-110); Anion Gap 12 mmol/L (10-20); BUN (Urea Nitrogen) 16 mg/dL (8.4-25.7); Bilirubin, Total 0.2 mg/dL (0.2-1.2); Calc. Creatinine Clearance 117 mL/min (70-130); Calcium 8.9 mg/dL (7.8-10.44); Carbon Dioxide 26 mmol/L (22-29); Chloride 103 mmol/L (98-107); Estimated GFR 101; Globulin 3.1 g/dL (2.4-3.5); Glucose 106 mg/dL (70-105); Potassium 4.4 mmol/L (3.5-5.1); Protein, Total 6.7 g/dL (6.0-8.3); Sodium 137 mmol/L (136-145)
[2023-12-11] MEDS: metroNIDAZOLE 500 MG in Premix 1 BAG IVPB SCH (14:07)
[2023-12-11] MEDS: Vancomycin HCl 125 MG Capsule PO SCH (16:51)
[2023-12-13] MEDS: metroNIDAZOLE 500 MG in Premix 1 BAG IVPB SCH (08:56)
[2023-12-13] MEDS: Cholestyramine/Aspartame 4 gm Packet PO SCH (15:07)
[2023-12-15 04:13] LABS: #Basophils 0.1 thou/uL (0.0-0.2); #Eosinphils 0.3 thou/uL (0.0-0.7); #Neutrophils 4.4 thou/uL (1.40-6.50); %Basophils 0.9 % (0.0-1.0); %Eosinophils 3.1 % (0.0-10.0); %Lymphocytes 28.4 % (21.0-51.0); %Monocytes 12.2 % (0.0-10.0); %Neutrophils 54.6 % (42.0-75.0); Hematocrit 34.9 % (42.0-52.0); Hemoglobin 11.5 g/dL (14.0-18.0); Mean Corpuscular Hemoglobin 29.5 pg (27.0-31.0); Mean Corpuscular Volume 89.5 fl (78.0-98.0); Mean Platelet Volume 8.9 fL (7.4-10.4); Platelet Count 269 10x3/uL (130-400); RBC Distribution Width 13.2 % (11.5-14.5)
[2023-12-15 04:41] LABS: ALT (SGPT) 44 U/L (8-55); AST (SGOT) 25 U/L (5-34); Albumin 3.6 g/dL (3.5-5.0); Alkaline Phosphatase 180 U/L (40-110); Anion Gap 10 mmol/L (10-20); BUN (Urea Nitrogen) 20 mg/dL (8.4-25.7); Bilirubin, Total 0.2 mg/dL (0.2-1.2); Calc. Creatinine Clearance 118 mL/min (70-130); Calcium 8.7 mg/dL (7.8-10.44); Carbon Dioxide 23 mmol/L (22-29); Chloride 108 mmol/L (98-107); Estimated GFR 102; Globulin 2.9 g/dL (2.4-3.5); Glucose 114 mg/dL (70-105); Magnesium 1.9 mg/dL (1.6-2.6); Phosphorus 3.3 mg/dL (2.3-4.7); Potassium 3.8 mmol/L (3.5-5.1); Protein, Total 6.5 g/dL (6.0-8.3); Sodium 137 mmol/L (136-145)
[2023-12-15] MEDS: Diphenoxylate HCl/Atropine Tablet PO PRN (20:53)
[2023-12-15] MEDS: Zolpidem Tartrate 5 MG TAB PO PRN (20:54)
[2023-12-16] MEDS ORDERED: Dicyclomine 10 MG CAP PO PRN (15:28)
[2023-12-16] MEDS: traMADol HCl 50 MG TAB PO PRN (16:09)
[2023-12-16] MEDS ORDERED: Fioricet 325/50/40 mg Tablet PO PRN (20:28)
[2023-12-16] MEDS: Fioricet 325/50/40 mg Tablet PO PRN (20:57)
[2023-12-19 08:06] VITALS: TEMP 97.9
[2023-12-19 12:41] VITALS: BP 128/74
== END 2023-12-19 14:12 | disposition home or self-care (01) | DRG 373 ==
LOC: ERS 16:15 → ERHOLD 20:53 → SURG A 12-07 19:44
PROVIDERS: ADMIT Specialist; ATTEND Specialist
DX: A04.72 Enterocolitis due to Clostridium difficile, not specified as recurrent (principal); N40.0 Benign prostatic hyperplasia without lower urinary tract symptoms; Z79.899 Other long term (current) drug therapy; Z98.890 Other specified postprocedural states
CPT/HCPCS: 36415; 80048; 80053; 83630; 83690; 83735; 84100; 85025; 87324; 87449; 87505; 90714; 96360; J3480; J7050; S0028